=== PATIENT | female | born 1965 | race Caucasian/White ===

== ENCOUNTER 2019-04-01 09:49 | Inpatient (IN) ==
[2019-04-01] MEDS ORDERED: NS 1,000 ML IV PRN (10:48)
[2019-04-01 11:15] LABS: URINE SOURCE CLEAN CATCH
[2019-04-01 11:19] LABS: BASO# 0.02 X1000 (0.0-0.2); BASO% 0.5 % (0.0-0.8); EOS# 0.25 X1000 (0.0-0.7); EOS% 5.8 % (0.0-10.0); HEMATOCRIT 36.1 % (37.0-47.0); HEMOGLOBIN 12.1 g/dL (12.0-16.0); LYMPH# 1.16 X1000 (1.2-3.4); MCH 28.7 PG (27-31); MCHC 33.5 g/dL (33-37); MCV 85.7 FL (81-99); MONO# 0.27 X1000 (0.11-0.59); MONO% 6.3 % (1.7-9.3); MPV 12.4 FL (7.4-10.4); NEUT% 60.4 % (42.2-75.2); PLT 161 X1000 (130-400); RBC 4.21 XMIL (4.2-5.4); RDW 13.6 % (11.5-14.5)
--- NOTE | 2019-04-01 11:27 | Diag Imaging Result Doc PS360 ---
EXAM: CT HEAD W/O CONTRAST 04/01/2019 HISTORY: stroke like symptoms TECHNIQUE: This exam was performed using automated exposure control, adjustment of mA or kV according to patient size, and/or use of iterative reconstruction technique. COMMENT: There is no evidence of mass effect, bleed, or abnormal extra-axial fluid collection. The calvarium is intact. The visualized paranasal sinuses are clear. IMPRESSION: No evidence of acute intracranial disease. Electronically signed by Corona Garcia 04/01/2019 11:25 AM
--- NOTE | 2019-04-01 11:37 | Diag Imaging Result Doc PS360 ---
CHEST-PORTABLE - 04/01/2019 INDICATION: stroke like symptoms COMPARISON: None FINDINGS: The lungs are normally expanded and clear. Heart size and mediastinal contours are normal. No pneumothorax or pleural effusion. IMPRESSION: Negative exam. Electronically signed by Terry Davies 04/01/2019 11:34 AM
[2019-04-01 11:38] LABS: INR 0.93; PROTIME 12.5 Seconds (11.0-16.0)
[2019-04-01 11:43] LABS: PTT 24.9 Seconds (22.3-41.8)
[2019-04-01 11:47] LABS: BILIRUBIN URINE NEGATIVE (NEGATIVE); BLOOD URINE NEGATIVE (NEGATIVE); COLOR YELLOW; GLUCOSE URINE >1000 mg/dL (NEGATIVE); KETONE URINE NEGATIVE (NEGATIVE); LEUKOCYTES URINE SMALL (NEGATIVE); NITRITE URINE NEGATIVE (NEGATIVE); PROTEIN URINE NEGATIVE (NEGATIVE); TURBIDITY URINE CLEAR (CLEAR); UROBILINOGEN URINE NORMAL (NORMAL)
[2019-04-01 11:49] LABS: AGAP 14; ALB/GLOB RATIO 1.8; ALBUMIN 4.3 g/dL (3.5-5.0); ALKALINE PHOSPHATASE 93 U/L (32-104); BUN 13 mg/dL (8-22); CALCIUM 9.4 mg/dL (8.8-10.2); CHLORIDE 97 mmol/L (98-107); COSMO 294; CREATININE 0.9 mg/dL (0.5-0.9); ESTIMATED GFR > 60; GLUCOSE 356 mg/dL (70-104); GOT 19 U/L (10-30); GPT 17 U/L (10-36); POTASSIUM 3.6 mmol/L (3.5-5.1); SODIUM 140 mmol/L (136-145); TCO2 29 mmol/L (25-35); TOTAL BILIRUBIN 0.73 mg/dL (0.20-1.00); TOTAL PROTEIN 6.7 g/dL (6.3-8.3)
[2019-04-01 11:56] LABS: UR EPITHELIAL CELLS <10 /HPF (<10); URINE BACTERIA NEGATIVE /HPF; URINE RBC <10 /HPF (<10); URINE WBC <10 /HPF (<10); URINE YEAST PRESENT
[2019-04-01 12:20] LABS: UR AMPHETAMINES QUAL NONE DETECTED (NONE DETECT); UR BARBITUATES QUAL NONE DETECTED (NONE DETECT); UR BENZODIAZEPIN QUAL NONE DETECTED (NONE DETECT); UR CANNABINOIDS QUAL NONE DETECTED (NONE DETECT); UR COCAINE QUAL NONE DETECTED (NONE DETECT); UR METHADONE QUAL NONE DETECTED (NONE DETECT); UR OPIATES QUAL NONE DETECTED (NONE DETECT); UR OXYCODONE QUAL NONE DETECTED (NONE DETECT); UR PCP QUAL NONE DETECTED (NONE DETECT)
[2019-04-01] MEDS ORDERED: ASPIRIN PO ONE ×2 (13:17→17:10)
--- NOTE | 2019-04-01 13:34 | PROVIDER DOCUMENTATION ---
This chart was entered by Eugene Dinh Scribe, acting as scribe for Akbar Camara MD. HPI-Neurological Disorder - General Chief Complaint: Stroke-Like Symptoms Stated Complaint: DR FREDERICK REFERRED Time Seen by Provider: 04/01/19 10:06 Source: patient Allergies/Adverse Reactions: Patient Allergies Allergy/AdvReac Type Severity Reaction Status Date / Time latex Allergy Unknown Verified 04/01/19 10:09 Penicillins Allergy Unknown Verified 04/01/19 10:09 povidone-iodine Allergy Unknown Verified 04/01/19 10:09 [From Betadine] soap [From Betadine] Allergy Unknown Verified 04/01/19 10:09 Sulfa (Sulfonamide Allergy Unknown Verified 04/01/19 10:09 Antibiotics) Home Medications: Home Medication List Medication Instructions Recorded Confirmed Last Taken Type Atorvastatin Calcium [Lipitor] 40 mg PO DAILY 09/16/16 04/01/19 09/16/16 History Bisoprolol Fumarate [Zebeta] 10 mg PO DAILY 09/16/16 04/01/19 09/16/16 History Gabapentin 300 mg PO TID 09/16/16 04/01/19 09/16/16 History Glyburide/Metformin [Glucovance 1 tab PO BID 09/16/16 04/01/19 09/16/16 History 5/500 mg Tablet] Hydrochlorothiazide 25 mg PO DAILY 09/16/16 04/01/19 09/16/16 History LISINOpril [Prinivil] 10 mg PO DAILY 09/16/16 04/01/19 09/16/16 History Levothyroxine [Synthroid] 100 mcg PO DAILY 09/16/16 04/01/19 09/16/16 History Omeprazole 40 mg PO DAILY 04/01/19 04/01/19 Unknown History - History of Present Illness-Neuro Nature of Presenting Problem: 53 yof presents to the ed from being referred by Dr. Frederick. pt has RT visual disturbances since Jan, and has seen several physicians. pt was referred to Optho in [place] who ordered a MRI (possible CVA) and reported Accute or sub- acute infract. Severity: reports: mild Onset/Duration: reports: other (since Jan.) Timing: reports: still present Context: reports: other (Rt visual defect) Character of Altered Mental Status: reports: N/A Any recent trauma/injury?: reports: none New weakness or altered sensation location:: reports: none Cognitive Baseline: alert, oriented x3 Gait Baseline: walks without assistance Associated Symptoms: reports: vision changes. denies: short of breath, confusion, fever/chills, loss of consciousness, nausea, numbness in legs/feet, slurred speech, vomiting Similar Symptoms Previously?: No Recently seen or treated by another doctor?: Yes Review of Systems - Adult - REVIEW OF SYSTEMS - ADULT Constitutional: denies: chills, fever Eyes: reports: see HPI. denies: discharge, redness Ears, Nose, Mouth & Throat: reports: no symptoms reported Cardiovascular: reports: no symptoms reported Respiratory: reports: no symptoms reported Gastrointestinal: denies: constipation, diarrhea, nausea, vomiting Genitourinary: reports: no symptoms reported Musculoskeletal: denies: back pain, neck pain Integumentary: reports: no symptoms reported Neurological: reports: no symptoms reported Psychiatric: reports: no symptoms reported Endocrine: reports: no symptoms reported Hematologic/Lymphatic: reports: no symptoms reported Allergic/Immunologic: reports: no symptoms reported All Other Systems: Reviewed and Negative Past History - Adult - PAST MEDICAL HISTORY-ADULT Review of Records: reports: Old Records Reviewed, Nursing Assessment Review, Medications Reviewed, Social history reviewed & non-contributory. Major Childhood Illnesses: reports: denies history Cardiovascular: reports: HTN, hyperlipidemia Respiratory: reports: sleep apnea Gastrointestinal: reports: denies history Obstetrical/Gynecological: reports: denies history Genitourinary: reports: denies history Musculoskeletal: reports: denies history Neurological: reports: denies history Psychiatric: reports: denies history Endocrine/Immune: reports: Diabetes Other Conditions: reports: denies history - PRIOR SURGERIES/PROCEDURES Surgical/Procedure History: reports: cholecystectomy, other (knee & bone graft in wrist) - IMMUNIZATION STATUS Childhood Immunizations: See Nurse Assessment Flu Vaccine: See Nurse Assessment - FAMILY HISTORY Family History: reviewed, not pertinent - SOCIAL HISTORY Smoking: denies Substance Use: denies Physical Exam- Neurological - Physical Exam-Neuro Initial Vital Signs Reviewed: Yes General Appearance: appears well, 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, 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: normal hearing, normal speech, PERRL Motor/Sensory: no motor deficit, no sensory deficit, no pronator drift Neurologic: no motor/sensory deficits Psych/Mental Status: normal mood/affect, normal thought content, normal thought process, oriented x 3 - Glascow Coma Scale Best Eye Response: (4) open spontaneously Best Verbal Response: (5) oriented Best Motor Response: (6) obeys commands Total Glascow Score: 15 Progress - PLAN OF CARE/RESULTS Progress/Plan/Lab Results: Vital Signs - 8 hr 04/01/19 09:57 04/01/19 10:06 Temperature 98.3 F Pulse Rate 76 74 Respiratory Rate 16 15 Blood Pressure 117/64 159/81 O2 Sat by Pulse Oximetry 98 100 Laboratory Results - last 24 hr 04/01/19 04/01/19 04/01/19 11:00 11:00 11:00 WBC 4.30 L RBC 4.21 Hgb 12.1 Hct 36.1 L MCV 85.7 MCH 28.7 MCHC 33.5 RDW Std Deviation 13.6 Plt Count 161 MPV 12.4 H Immature Gran % (Auto) 0.0 Neut % (Auto) 60.4 Lymph % (Auto) 27.0 [place] % (Auto) 6.3 Eos % (Auto) 5.8 Baso % (Auto) 0.5 Immature Gran # (Auto) 0.00 Neut # (Auto) 2.60 Lymph # (Auto) 1.16 L [place] # (Auto) 0.27 Eos # (Auto) 0.25 Baso # (Auto) 0.02 PT 12.5 INR 0.93 PTT (Actin FS) 24.9 Sodium 140 Potassium 3.6 Chloride 97 L Carbon Dioxide 29 Anion Gap 14 BUN 13 Creatinine 0.9 Estimated GFR/1.73 m2 > 60 BUN/Creatinine Ratio 14 Glucose 356 H Calculated Osmolality 294 Calcium 9.4 Total Bilirubin 0.73 AST 19 ALT 17 Alkaline Phosphatase 93 Troponin T Total Protein 6.7 Albumin 4.3 Globulin 2.4 Albumin/Globulin Ratio 1.8 Urine Source Urine Color Urine Turbidity Urine pH Ur Specific [place] Urine Protein Ur Glucose (Stick) Ur Ketones (Stick) Urine Blood Urine Nitrite Urine Bilirubin Urobilinogen Dipstick Urine Leukocytes Urine WBC (Auto) Urine RBC (Auto) U Epithel Cells (Auto) Urine Bacteria (Auto) Urine Crystals Small Round Cells Urine Casts Urine Yeast-like Cells Urine Opiates Screen Ur Oxycodone Screen Ur Methadone, Qual Ur Barbiturates Screen Ur Phencyclidine Scrn Ur Amphetamines Screen U Benzodiazepines Scrn Urine Cocaine Screen U Cannabinoids Screen 04/01/19 04/01/19 04/01/19 11:00 11:00 11:00 WBC RBC Hgb Hct MCV MCH MCHC RDW Std Deviation Plt Count MPV Immature Gran % (Auto) Neut % (Auto) Lymph % (Auto) [place] % (Auto) Eos % (Auto) Baso % (Auto) Immature Gran # (Auto) Neut # (Auto) Lymph # (Auto) [place] # (Auto) Eos # (Auto) Baso # (Auto) PT INR PTT (Actin FS) Sodium Potassium Chloride Carbon Dioxide Anion Gap BUN Creatinine Estimated GFR/1.73 m2 BUN/Creatinine Ratio Glucose Calculated Osmolality Calcium Total Bilirubin AST ALT Alkaline Phosphatase Troponin T < 0.010 Total Protein Albumin Globulin Albumin/Globulin Ratio Urine Source CLEAN CATCH Urine Color YELLOW Urine Turbidity CLEAR Urine pH 6.0 Ur Specific [place] 1.020 Urine Protein NEGATIVE Ur Glucose (Stick) >1000 A Ur Ketones (Stick) NEGATIVE Urine Blood NEGATIVE Urine Nitrite NEGATIVE Urine Bilirubin NEGATIVE Urobilinogen Dipstick NORMAL Urine Leukocytes SMALL A Urine WBC (Auto) <10 Urine RBC (Auto) <10 U Epithel Cells (Auto) <10 Urine Bacteria (Auto) NEGATIVE Urine Crystals Not Reportable Small Round Cells Not Reportable Urine Casts Not Reportable Urine Yeast-like Cells PRESENT Urine Opiates Screen NONE DETECTED Ur Oxycodone Screen NONE DETECTED Ur Methadone, Qual NONE DETECTED Ur Barbiturates Screen NONE DETECTED Ur Phencyclidine Scrn NONE DETECTED Ur Amphetamines Screen NONE DETECTED U Benzodiazepines Scrn NONE DETECTED Urine Cocaine Screen NONE DETECTED U Cannabinoids Screen NONE DETECTED Orders Category Date Time Status Cardiac Monitoring DIRECTED Care 04/01/19 10:48 Active Finger Stick Blood Sugar (ED) DIRECTED Care 04/01/19 10:48 Active Misc. NRSG Communication Order DIRECTED Care 04/01/19 10:48 Active Saline Loc NOW Care 04/01/19 10:48 Active CHEST-PORTABLE [RAD] Stat Exams 04/01/19 10:[address] HEAD W/O CONTRAST [CT] Stat Exams 04/01/19 10:48 Completed CBC WITH ELECTRONIC DIFF [HEME] Stat Lab 04/01/19 11:00 Completed COMPREHENSIVE METABOLIC PANEL [CHEM] Stat Lab 04/01/19 11:00 Completed PROTIME WITH INR [COAG] Stat Lab 04/01/19 11:00 Completed PTT [COAG] Stat Lab 04/01/19 11:00 Completed TROPONIN T Stat Lab 04/01/19 11:00 Completed URINALYSIS W/POSS RFLX CULT [URINALYSIS] Stat Lab 04/01/19 11:00 Completed URINE CULTURE [RM] Routine Lab 04/01/19 11:03 Received URINE DRUG SCREEN Stat Lab 04/01/19 11:00 Completed URINE MANUAL MICROSCOPIC [URINALYSIS] Stat Lab 04/01/19 11:00 Completed 0.9% Sodium Chloride Inj [Ns] 1,000 ml Med 04/01/19 10:48 Active IV 100 mls/hr Aspirin Med 04/01/19 13:17 Discontinued 81 mg PO NOW ONE EKG [EKG] Stat Ther 04/01/19 10:48 Ordered Transfer/Admit Order [TRANSFER] Routine Transfer 04/01/19 13:07 Ordered Result Diagrams: 04/01/19 11:00 04/01/19 11:00 - XRAY 1 XRAY Study: Chest Impression: See EMR Report ( CHEST-PORTABLE - 04/01/2019 INDICATION: stroke like symptoms COMPARISON: None FINDINGS: The lungs are normally expanded and clear. Heart size and mediastinal contours are normal. No pneumothorax or pleural effusion. IMPRESSION: Negative exam. Electronically signed by Terry Davies 04/01/2019 11:34 AM 04/01/19 1134 Interpreting Physician: Terry Davies MD Dictated Date/Time: 04/01/19 1134 cc: Akbar Camara MD; Wilfredo Boyce MD) - CT/MRI 1 CT Study: Head Impression: See EMR Report (EXAM: CT HEAD W/O CONTRAST 04/01/2019 HISTORY: stroke like symptoms TECHNIQUE: This exam was performed using automated exposure control, adjustment of mA or kV according to patient size, and/or use of iterative reconstruction technique. COMMENT: There is no evidence of mass effect, bleed, or abnormal extra-axial fluid collection. The calvarium is intact. The visualized paranasal sinuses are clear. IMPRESSION: No evidence of acute intracranial disease. Electronically signed by Corona Garcia 04/01/2019 11:25 AM 04/01/19 1125 Interpreting Physician: Coroan Garcia MD Dictated Date/Time: 04/01/19 1124 cc: Akbar Camara MD; Wilfredo Boyce MD) - CONSULTS/PCP/HOSPITALIST Notification #3 Consult: Hospitalist Time Discussed: 12:30 Consult Disposition: Will see in ED, Admit Departure - Departure Date of Disposition Decision: 04/01/19 Time of Disposition Decision: 11:00 DIAGNOSIS: CVA (cerebral vascular accident) Qualifiers: CVA mechanism: unspecified Qualified Code(s): I63.9 - Cerebral infarction, unspecified Disposition: ADMITTED INPATIENT 09 Certified Medical Emergency: Emergent Condition: Good Referrals and Follow-Ups: Wilfredo Boyce MD [Primary Care Provider] - - Critical Care Note This patient required my direct & personal management of CC.: No Attestation - Physician/ ALINA Attestation Patient care was provided by Advanced Practice Provider:: No The physician spent face to face time with patient:: Yes Advanced Practice Provider documentation review:: Supervising physician onsite and consulted in the evaluation and care of this patient. The physician did have a face to face encounter with the patient. - NIH Stroke Scale NIH Type: Initial Evaluation Level of Consciousness: 0-Alert LOC Questions (ask month and age): 0-Answers Both Correctly LOC Commands (ask to open & close eyes;make a fist, let go): 0-Obeys Both Correctly Best Gaze (horizontal eye movement): 0-Normal Visual (use finger movement, counting or visual threat): 3-Bilateral Hemianopia Facial Palsy (show teeth or raise eyebrows & close eyes tght: 0-Symmetrical Movement Motor Function-left arm: 0-Normal Motor Function-right arm: 0-Normal Motor Function-left le-Normal Motor Function-right le-Normal Limb Ataxia([id number], or heel to schultz): 0-No Ataxia Sensory(pin prick to face,arms,trunk,legs-compare side/side): 0-No Ataxia Best Language(name item/read sentence.Ex-[place]): 0-No Aphasia Dysarthria(Pt read words or say words Ex.Mama,Tip-Top,Thanks: 0-Normal Articulation Extinction and Inattention: 0-Normal Stroke tPA Guidelines - Inclusion Criteria for IV tPA 18 years old or older: Yes Ischemic stroke with measurable deficit: Yes Onset <3 hours ago *OR* 3-4.5 hours ago: No This chart was documented by the indicated scribe, (Eugene Dinh, Scribe) and accurately reflects the services I performed and decisions made by me, Akbar Camara MD, as attested by the provider's signature.
[2019-04-01] MEDS ORDERED: TYLENOL PO PRN (15:17)
[2019-04-01] MEDS ORDERED: ZOFRAN IV PRN (15:17)
[2019-04-01 15:57] LABS: HEMOGLOBIN A1C 9.9 % (4.8-6.0)
[2019-04-01 16:03] LABS: FREE T4 1.61 ng/dL (0.93-1.70); TSH 2.25 uIUmL (0.27-4.20)
--- NOTE | 2019-04-01 16:42 | HISTORY AND PHYSICAL ---
PRIMARY CARE PHYSICIAN: Dr. Wilfredo Boyce. CHIEF COMPLAINT: She had an outpatient MRI yesterday and was called today stating that she had an acute or subacute left occipital lobe infarct and was requested to come to the ER for further evaluation. HISTORY OF PRESENTING ILLNESS: This is a 53-year-old female who presents to [facility] stating that she has had some visual disturbances that started in January, so about 6 weeks. She said she saw a local superintendent terminal who referred her to an superintendent terminal specialist in [place] who after examining her, felt that she may have had a stroke based off of how her eye exam looked. So yesterday, she had an outpatient MRI done at the [facility] here in [place] and the impression showed an acute or subacute left occipital lobe infarct with a more wedge-shaped area present extending to the midline and posterior margin of the left occipital lobe and so she was called by the superintendent terminal who received the report this morning to come to the emergency room for evaluation. So, she will now be admitted for further evaluation and treatment. PAST MEDICAL HISTORY: Diabetes type 2, uncontrolled. Hyperlipidemia, hypertension, sleep apnea, hypothyroidism, and arthritis. PAST SURGICAL HISTORY: Cholecystectomy, a knee surgery and a bone graft in her wrist. FAMILY HISTORY: Reviewed and noncontributory. SOCIAL HISTORY: She currently lives with family. Denies any tobacco, alcohol or illicit drug use. ALLERGIES: Latex, penicillin, Povidine, iodine, soap from the Betadine and sulfa. HOME MEDICATIONS: She takes Lipitor 40 mg p.o. daily, Zebeta 10 mg p.o. daily, gabapentin 300 mg p.o. t.i.d., Glucovance 5/500 one p.o. b.i.d., hydrochlorothiazide 25 mg p.o. daily, levothyroxine 100 mcg p.o. daily, lisinopril 10 mg p.o. daily, and omeprazole 40 mg p.o. daily. LABORATORY DATA: Showed a white blood cell count of 4.30, hemoglobin 12.1, hematocrit 36.1, platelets 161,000. PT and INR of 12.5 and 0.93. Sodium 140, potassium 3.6, chloride 97, CO2 29, BUN 13, creatinine 0.9, glucose 356. Troponin was negative. Urinalysis was negative. Urine drug screen showed none detected. Chest x-ray showed a negative exam. Head CT showed no evidence of an acute intracranial disease. She did have the MRI done outpatient at the [facility] yesterday. I do have a copy of that report in hand that shows an impression of acute or subacute left occipital lobe infarct with a more wedge-shaped area present extending to the midline and posterior margin of the left occipital lobe and this is most likely responsible for the patient's visual field deficits. REVIEW OF SYSTEMS: She denied any fever, chills, blurred vision. She did have some visual difficulties over the past 6 weeks that has progressively worsened, stating that she was having trouble reading and was reading on about a "3rd grade level" according to the patient because of her difficulty seeing. She denied any chest pain, coughing, shortness of breath. She denied any abdominal pain, constipation, diarrhea, burning or hurting with urination. PHYSICAL EXAMINATION: On arrival, she had a temperature of 98.3 degrees a pulse of 76, respirations 16, blood pressure 117/64, and saturating 98% on room air. GENERAL: This is a 53-year-old female who is lying in the bed. Answers questions appropriately. HEENT: Normocephalic, atraumatic. Normal ENT inspection. She has had some right visual peripheral an frontal defect, difficulty seeing out of her right eye, but extraocular movements are intact. NECK: Normal inspection. Normal range of motion. LUNGS: Clear to auscultation bilaterally with equal lung expansion and chest wall movement. HEART: With regular rate and rhythm. No murmurs, rubs, or gallops. ABDOMEN: Soft, nontender, nondistended. Bowel sounds are present x4 quadrants. MUSCULOSKELETAL: She had 5/5 strength x4 extremities. NEUROLOGICAL: The cranial nerves 2-12 are grossly intact. ASSESSMENT: 1. An acute/subacute left occipital cerebrovascular accident with right visual impairment. 2. Diabetes type 2 with hyperglycemia uncontrolled. 3. Hyperlipidemia. 4. Hypothyroidism. PLAN: She is being admitted to the medical unit and placed on telemetry. We will place her on a diabetic diet, do patterned blood sugars with sliding scale insulin. We are going to check a hemoglobin A1c. We will do a carotid Doppler and an echocardiogram. We will check her TSH and free T4. Continue her home medications. Give her aspirin 81 mg p.o. daily. We will recheck a CBC, BMP, and lipid profile. We will consult Neurology and further orders after seen by attending. Dictated by JOSEPH Carey for Bharat Huff MD cc: JOSEPH Carey MD David Francis, MD
[2019-04-01] MEDS: NEURONTIN PO SCH (17:17)
[2019-04-01] MEDS: LOVENOX SUBQ SCH (17:17)
[2019-04-01] MEDS: HUMALOG SUBQ SCH ×2 (17:21→22:25)
[2019-04-01] MEDS ORDERED: ASPIRIN ONE (17:30)
[2019-04-01] MEDS: SYNTHROID PO SCH (18:20)
[2019-04-01] MEDS: NOVOLOG MIX 70/30 SUBQ SCH ×2 (18:21→22:25)
[2019-04-01] MEDS ORDERED: INSULIN PEN NEEDLES ONE (18:22)
--- NOTE | 2019-04-01 20:30 | CONSULTATION ---
DATE OF CONSULTATION: 04/01/2019 HISTORY OF PRESENT ILLNESS:: Ms. Prasad is 53 years old. It looks like she had recent left occipital infarction producing minimal right hemianopia. History from the patient is that she noticed almost 2 months ago that she had difficulty with vision. Initially, she did not notice this to be focal. Eventually, she noticed when reading that she could see the first several letters of words but did not see the last several letters of words. She noticed that she would misplace things when she tried to put something down in a drawer to her right. She noticed that she would sometimes see only the left half of a car in front of her. She noticed a little bit of unsteady gait, which she attributed to lightheadedness and blood sugar effects. She did not notice bumping into things on her right side consistently. She did not fall. There was no significant headache. She did not have slurred speech or language deficit. There was no trouble with chewing or swallowing. She did not notice focal or generalized weakness or focal numbness in the limbs. She has chronic numbness in the feet attributed to longstanding diabetic neuropathy and that has been unchanged in recent months. Her workup began with visit to the eye doctor, referral to manager film in [place], discovery of visual field defect and then a brain MRI done locally, reported to show restricted diffusion in a small area in the left occipital lobe. I have not seen the scan. Workup here includes noncontrast CT, reported unremarkable. Lab shows blood sugar in 300s. She reports chronic proteinuria, but urine was negative for protein this admission. She has been afebrile. Most recent systolic blood pressure was 150s, and she is tolerating that. Risk factors include hypertension, dyslipidemia, diabetes mellitus. She does not smoke cigarettes. There is a family history that father had a "massive heart attack" in his mid 40s. She has not had a previous stroke, seizure, serious head injury, or other neurologic event. She denies ethanol use and illicit drug use. PHYSICAL EXAMINATION: General: She is awake, alert, attentive, appropriate, cheerful, oriented. She appears cognitively intact. Neurologic: Speech is not dysarthric. Language function is intact on bedside testing. Head and neck are unremarkable. On my visual field testing by confrontational finger counting, she made a few mistakes in the right visual field, possibly a little bit more superior than inferior, but there was not a consistent field cut identified. Extraocular movements are full. Facial motility is symmetric. Gag is intact. Tongue is midline. Hearing is good. Shoulder shrug is equal. Strength is normal in the arms and legs. She did well on [id number] testing bilaterally. I did not test her gait. She reports minimal loss of sensation in a stocking pattern bilaterally, equal on the left and right. Proprioception is good at the great toe MTP joints bilaterally. Reflexes are trace at the left ankle, absent at the right ankle, 1+ at the knees, 1+ at the wrists symmetrically. IMPRESSION: History of vision disturbance, reported documentation of right visual field loss, reported MRI evidence of recent left occipital infarction. She has risk factors as outlined above. Her clinical course has been stable since she noticed this deficit at least 6 weeks ago. I encouraged her to be aggressive with management of her risk factors. I agree with plans for workup, including echocardiogram and carotid ultrasound. In light of her young age, if we do not find anything remarkable with echo and carotid study, I think we should consider a CT angiogram of the head. She was taking daily aspirin, and I would continue that and consider adding clopidogrel at least short term. I would continue her statin. At this point, several weeks after onset, I do not think we have to permit significant hypertension. I would be aggressive with management of blood sugar and lipids. She should have follow up visual field study in several months, sooner if vision changes. Thanks for asking Neurology to see Ms. Prasad. I will be glad to see her as an outpatient, if needed. cc: MD ALONDRA Rodriguez III
--- NOTE | 2019-04-01 20:31 | HISTORY AND PHYSICAL ---
ADDENDUM: The patient seen and examined by me [id number]. All the laboratory, vital signs and images were reviewed. The patient presented with right visual disturbances. Apparently, this has been going on for a little bit. She was referred to an Ophthalmology in [place] and they ordered an MRI that showed an acute or subacute infarct. She has a mild visual deficit that she is missing a spot in her visual field, but no motor deficits. No problem swallowing and basically no other problems. She has been having problems controlling her blood sugar and actually her hemoglobin A1c is 9.9. Hemoglobin upon admission was 356. Normally she said that the blood sugar is above 200 at home. She has been on glyburide and metformin 5/500 mg tablet twice a day, but I will add NovoLog 70/30 25 units in the morning and 12 unit in the afternoon before meals. Neurology Department already evaluated this patient. I do not think we are going to add any treatment. Probably, she will need Plavix to take along with aspirin. I agree with the rest of the nurse practitioner's assessment and plan. cc: Bharat Huff MD
[2019-04-01] MEDS ORDERED: GLUCOVANCE 5-500 MG TABLET PO SCH (21:00)
[2019-04-01] MEDS: LIPITOR PO SCH (22:25)
[2019-04-02] MEDS: HUMALOG SUBQ SCH ×4 (06:08→22:25)
[2019-04-02] MEDS ORDERED: PRILOSEC PO SCH (07:00)
[2019-04-02 07:31] LABS: BASO# 0.03 X1000 (0.0-0.2); BASO% 0.6 % (0.0-0.8); EOS# 0.28 X1000 (0.0-0.7); EOS% 5.4 % (0.0-10.0); HEMATOCRIT 35.7 % (37.0-47.0); HEMOGLOBIN 11.6 g/dL (12.0-16.0); LYMPH# 1.83 X1000 (1.2-3.4); LYMPH% 35.4 % (20.5-51.1); MCH 28.1 PG (27-31); MCHC 32.5 g/dL (33-37); MCV 86.4 FL (81-99); MONO# 0.34 X1000 (0.11-0.59); MONO% 6.6 % (1.7-9.3); MPV 12.4 FL (7.4-10.4); NEUT# 2.69 X1000 (1.4-6.5); PLT 194 X1000 (130-400); RBC 4.13 XMIL (4.2-5.4); RDW 13.6 % (11.5-14.5); WBC 5.17 X1000 (4.8-10.8)
[2019-04-02 07:45] LABS: AGAP 14; BUN 9 mg/dL (8-22); CALCIUM 9.2 mg/dL (8.8-10.2); CHLORIDE 99 mmol/L (98-107); COSMO 287; CREATININE 0.8 mg/dL (0.5-0.9); ESTIMATED GFR > 60; GLUCOSE 220 mg/dL (70-104); SODIUM 141 mmol/L (136-145); TCO2 28 mmol/L (25-35)
[2019-04-02] MEDS ORDERED: KLOR-CON PO ONE (08:39)
[2019-04-02] MEDS ORDERED: LIPITOR PO SCH (09:00)
[2019-04-02] MEDS ORDERED: SYNTHROID PO SCH (09:00)
[2019-04-02] MEDS: ASPIRIN PO SCH (09:46)
[2019-04-02] MEDS: ZEBETA PO SCH (09:46)
[2019-04-02] MEDS: HYDROCHLOROTHIAZIDE PO SCH (09:46)
[2019-04-02] MEDS: SYNTHROID PO SCH (09:46)
[2019-04-02] MEDS: PRINIVIL PO SCH (09:46)
[2019-04-02] MEDS: NEURONTIN PO SCH ×3 (09:46→17:32)
[2019-04-02] MEDS: NOVOLOG MIX 70/30 SUBQ SCH ×3 (09:47→22:24)
[2019-04-02] MEDS: PLAVIX PO SCH (11:04)
--- NOTE | 2019-04-02 13:13 | PROGRESS NOTE ---
DATE: 04/02/2019 SUBJECTIVE: Ms. Prasad reports stable course over the last 24 hours. She specifically denies new vision problems. She has not had headache. Systolic blood pressures have ranged 120s-140s. Blood sugars have ranged 200s to 400s. Echocardiogram and carotid ultrasound have been done with report pending. She believes there may have been a verbal report that there were no remarkable findings, but I do not have documentation of that. If we do not find significant left carotid stenosis, I would consider elective CT angiogram of the head. Her creatinine is good and she should tolerate that study. If CTA is unremarkable, as expected, I would continue aggressive management of blood sugar, treat blood pressure aggressively, treat lipids, continue dual antiplatelet management. Later, depending on her clinical course, outpatient referral to a Stroke Clinic for consideration of conventional arteriogram could be considered. She is relatively young, but has usual risk factors and stroke clinic referral will probably not be necessary unless she has further events or has strong personal desire to take that step. I have ordered some coagulopathy screening lab for stroke in young adult. I will follow up on these results if she is discharged before reports are available. Thanks for asking Neurology to see Ms. Prasad. I will be glad to see her as an outpatient if needed. cc: MD ALONDRA Rodriguez III
--- NOTE | 2019-04-02 13:36 | ECHO REPORT ---
ORDER DATE: 04/01/2019 INTERPRETING PHYSICIAN: Dr. Freddy Hartmann. ECHOCARDIOGRAPHIC MEASUREMENTS: 1. Interventricular septum: 1.6 cm. 2. Left ventricular posterior wall: 1.3 cm. 3. Diastolic diameter: 4.4 cm. 4. Left atrium: 4.1 cm. 5. Aorta: 2.5 cm. SUMMARY OF THE 2-DIMENSIONAL IMAGIN. Aortic valve leaflets are sclerosed, trileaflet. 2. Pulmonic valve was normal. 3. Tricuspid valve was normal. 4. Mitral valve was normal. 5. There is mild left atrial enlargement. 6. Mild tricuspid regurgitation. Peak velocity across the tricuspid valve was 2.7 m/sec. 7. Pulmonary artery systolic pressure of 31 mmHg. 8. Mild mitral regurgitation. 9. Peak velocity across the aortic valve was less than 2 m/sec. There is no aortic stenosis or regurgitation. 10. Normal left ventricular cavity size. Concentric left ventricular hypertrophy. Estimated ejection fraction 65%. There is grade 1 diastolic dysfunction. cc: MD Sada Winters CRNP
[2019-04-02] MEDS: 1/2 NS 1,000 ML IV SCH (15:00)
--- NOTE | 2019-04-02 15:01 | PROGRESS NOTE ---
DATE: 04/02/2019 SUBJECTIVE: No acute events overnight. This patient has been requested a medication to be able to sleep, Dr. Gonsales recommended to add Plavix to her medications, which I did, and also do a CT angiogram of the head if this patient's carotid ultrasound and echocardiogram did not show anything remarkable, so CT angiogram has been ordered today, also he will check for panel for coagulability, and if this patient is discharged, he will follow up on that. I called for the recall of the carotid ultrasound and it looks like she has a normal volume of 0 to 39 percent, echocardiogram came back and showed a normal ejection fraction, a slightly increased pulmonary pressure at 31 mmHg and concentric left ventricular hypertrophy, of note this patient's father at the age of 45 for a massive heart attack. I will wait for the CT angiogram. I will readjust her insulin today to see how she does, I have calculated her dose around 0.5 mg/kg. Tomorrow depending on the results, we will readjust it again and probably she can be discharged after a neurology evaluation. OBJECTIVE: Vital Signs: Temperature 97.9 degrees, pulse 73, respiratory rate 19, blood pressure 142/72, oxygen saturation 98 on room air. HEENT: Head normocephalic, no trauma. PERRLA, she has some blind spots on my confrontational finger counting on the right side, the rest of my physical exam was basically appropriate. Neck: Supple, no JVD. Central trachea. Chest: Clear to auscultation. No wheezing. No rales. Abdomen: Soft, nontender, nondistended. No hepatosplenomegaly. Extremities: No edema, no clubbing, no cyanosis. Neurological: The patient is alert. She is oriented x3. No focal deficits but right eye disturbances. LABORATORY: WBC 5.1, hemoglobin 11.6, hematocrit 35.7, platelets 194,000, sodium 141, potassium 3, chloride 99, bicarbonate 28, BUN 9, creatinine 0.8, glucose 220, calcium 9.2. ASSESSMENT AND PLAN: 1. Reported right visual: Part of the visual field loss, reported MRI showed a recent left occipital infarction, MRI done showed restricted diffusion in a small area of the left occipital lobe, Neurology Department evaluated this patient. They added Plavix to her aspirin and probably this is going to be for a short term, likely also she will follow up with Dr. Gonsales as an outpatient. Coagulopathy study has been performed and is pending at this moment. We did a carotid and also an echocardiogram that did not show any big abnormalities, so we will ask for a CT angiogram of the head as suggested by Dr. Gonsales. 2. Uncontrolled type 2 diabetes with a hemoglobin A1c of 9.9, I have placed this patient on some insulin 70/30, but I will increase the dose of the insulin today to 30 in the morning and 15 during the night, as per the patient, her blood sugar at home is around 200 and sometimes is lower than that, she is trying to follow a diet and she is on glyburide, metformin 5/500 mg tablet twice a day. 3. Hypothyroidism. Continue with Synthroid. 4. Peripheral neuropathy. Continue with gabapentin. 5. Dyslipidemia. She has been placed on Lipitor 40 mg daily. 6. Hypertension. Continue with home medications. This seems to be stable. 7. Hopefully this patient can be discharged tomorrow after a neurology evaluation, I have ordered a CT angiogram which has been recommended by Cardiology, carotid ultrasound showed 0 to 39 percent stenosis which is stable, echocardiogram is reported, she has mild concentric hypertrophy of the left ventricle but normal ejection fraction, mild pulmonary hypertension. I have readjusted the dose of 70/30 and we will monitor. cc: Bharat Huff MD
--- NOTE | 2019-04-02 16:40 | Diag Imaging Result Doc PS360 ---
CT ANGIOGRAM HEAD - 04/02/2019 INDICATION: Stroke TECHNIQUE: Axial CT images were obtained after administering intravenous contrast. Three-dimensional angiographic images were generated. COMPARISON: Head CT 04/01/2019 FINDINGS: The intracranial arteries are all patent. There is no stenosis or aneurysm. Anatomy is conventional. There are some minimal calcified vascular disease of the carotid siphons. The vertebral arteries are patent and symmetric. Basilar artery is normal. IMPRESSION: No acute abnormality. This exam was performed using automated exposure control, adjustment of mA or kV according to patient size, and/or use of iterative reconstruction technique Electronically signed by Terry Davies 04/02/2019 4:38 PM
[2019-04-02] MEDS: LOVENOX SUBQ SCH (17:32)
--- NOTE | 2019-04-02 19:59 | Carotid Study ---
DATE: 04/01/2019 COSTUME DIRECTOR: [place] REQUESTING PROVIDER: JOSEPH Carey INDICATIONS: CVA, right eye vision disturbance. FINDINGS: Bilateral carotid arteries were visualized. Velocities normal. No significant atherosclerotic changes and antegrade vertebrals. SUMMARY: Overall normal appearing carotid duplex. cc: MD Sada Back CRNP
[2019-04-02] MEDS: LIPITOR PO SCH (22:24)
[2019-04-03] MEDS: AMBIEN PO SCH ×2 (02:51→21:53)
[2019-04-03] MEDS: HUMALOG SUBQ SCH ×4 (06:38→21:54)
[2019-04-03 07:35] LABS: BASO# 0.03 X1000 (0.0-0.2); BASO% 0.5 % (0.0-0.8); EOS# 0.25 X1000 (0.0-0.7); EOS% 4.2 % (0.0-10.0); HEMATOCRIT 36.7 % (37.0-47.0); HEMOGLOBIN 12.2 g/dL (12.0-16.0); LYMPH# 2.08 X1000 (1.2-3.4); LYMPH% 34.6 % (20.5-51.1); MCH 29.1 PG (27-31); MCHC 33.2 g/dL (33-37); MCV 87.6 FL (81-99); MONO# 0.34 X1000 (0.11-0.59); MONO% 5.6 % (1.7-9.3); MPV 12.4 FL (7.4-10.4); NEUT# 3.32 X1000 (1.4-6.5); NEUT% 55.1 % (42.2-75.2); PLT 192 X1000 (130-400); RBC 4.19 XMIL (4.2-5.4); RDW 13.7 % (11.5-14.5); WBC 6.02 X1000 (4.8-10.8)
[2019-04-03 07:57] LABS: AGAP 15; BUN 9 mg/dL (8-22); CHLORIDE 97 mmol/L (98-107); COSMO 285; CREATININE 0.8 mg/dL (0.5-0.9); ESTIMATED GFR > 60; GLUCOSE 217 mg/dL (70-104); POTASSIUM 3.3 mmol/L (3.5-5.1); SODIUM 140 mmol/L (136-145); TCO2 28 mmol/L (25-35)
[2019-04-03] MEDS ORDERED: NOVOLOG MIX 70/30 SUBQ SCH (09:00)
[2019-04-03] MEDS: ASPIRIN PO SCH (09:16)
[2019-04-03] MEDS: PRINIVIL PO SCH (09:16)
[2019-04-03] MEDS: ZEBETA PO SCH (09:16)
[2019-04-03] MEDS: PLAVIX PO SCH (09:17)
[2019-04-03] MEDS: HYDROCHLOROTHIAZIDE PO SCH (09:17)
[2019-04-03] MEDS: SYNTHROID PO SCH (09:17)
[2019-04-03] MEDS: NEURONTIN PO SCH ×3 (09:17→21:57)
--- NOTE | 2019-04-03 13:26 | PROGRESS NOTE ---
DATE: 04/03/2019 SUBJECTIVE: Ms. Prasad has not noticed any new problems with vision. She does not have any new complaints. DATA: Blood sugars have been a little bit improved overnight, but again over 300 early this morning. Sedimentation rate was 27. Echocardiogram and carotid ultrasound were unremarkable. CT angiogram of the head was normal. Systolic blood pressures have been 110s to 130s today. I do not have any new suggestion. We discussed referral to tertiary stroke clinic, but I do not think that is necessary at this point. I encouraged her to be aggressive with management of her risk factors. I will be glad to see Ms. Prasad again at any time. Thanks for asking Neurology to see her here. cc: Jaziel Gonsales III, MD MTDJeffry
[2019-04-03] MEDS: LOVENOX SUBQ SCH (17:37)
[2019-04-03] MEDS: 1/2 NS 1,000 ML IV SCH (17:38)
--- NOTE | 2019-04-03 18:38 | PROGRESS NOTE ---
DATE: 04/03/2019 SUBJECTIVE: This morning Ms. Prasad referred to be doing well. Still remains with some mild visual deficit. OBJECTIVE: Vital signs: Blood pressure is 127/73, pulse of 73, respirations 18, temperature is 98.1 degrees. On general exam Ms. Prasad is a 53-year-old female. She is in bed in no distress. Mucosa is pink and moist. Anicteric. Acyanotic. Neck is supple. Chest: Good air entry bilaterally. No crepitations. No rhonchi. Cardiovascular: Regular rate and rhythm. Abdomen is soft, distended but nontender. Bowel sounds present. Extremities: No pedal edema. 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 There is no motor deficit. The patient still refers to have some visual deficit, but I was unable to elicit that on physical exam. LABORATORY DATA: Reviewed, is unremarkable. DIAGNOSTIC DATA: An MRI report from the Imaging Center shows acute or subacute left occipital lobe infarct with a more wedge-shaped area present extending to the midline and posterior margin of the left occipital lobe. It measures approximately 3 x 3 x 3 x 0.5 in size. It is most likely responsible for the patient's visual field defects. ASSESSMENT AND PLAN: 1. Acute/subacute left occipital lobe infarct causing mild visual field defect on admission. The patient's CTA has been unremarkable. A transthoracic echocardiogram was also unremarkable. We will get Cardiology to evaluate her for possible transesophageal echocardiogram, plus/minus a Holter monitor to rule out any embolic course. 2. Severe uncontrolled diabetes mellitus, with presenting A1c of 9.9. The patient is on insulin regimen. 3. Hypertension. Blood pressures are within normal range, and I think Ms. Prasad's stroke probably happened somewhere in January, so I think it is reasonable to continue with the blood pressure management as it is. 4. Hypothyroidism. We will continue with Synthroid. 5. Dyslipidemia. Ms. Prasad was on Lipitor 40 mg even before the stroke. I think the dose needs to be uptitrated or change it to Crestor high-intensity dose as well. Today we are going to get Cardiology to evaluate Ms. Prasad for possible transesophageal echocardiogram/Holter monitor. Once she is evaluated by them I think we can get her discharged. cc: Jesse Sommers MD
[2019-04-03] MEDS: NOVOLOG MIX 70/30 SUBQ SCH (21:54)
[2019-04-03] MEDS: CRESTOR PO SCH (21:57)
[2019-04-03] MEDS ORDERED: INSULIN PEN NEEDLES ONE (22:14)
[2019-04-04] MEDS: HUMALOG SUBQ SCH ×4 (06:35→20:37)
[2019-04-04] MEDS ORDERED: NOVOLOG MIX 70/30 SUBQ SCH (09:00)
[2019-04-04] MEDS: PLAVIX PO SCH (09:41)
[2019-04-04] MEDS: PRINIVIL PO SCH (09:41)
[2019-04-04] MEDS: ASPIRIN PO SCH (09:41)
[2019-04-04] MEDS: HYDROCHLOROTHIAZIDE PO SCH (09:41)
[2019-04-04] MEDS: NEURONTIN PO SCH ×3 (09:41→20:39)
[2019-04-04] MEDS: SYNTHROID PO SCH (09:41)
[2019-04-04] MEDS: ZEBETA PO SCH (09:41)
[2019-04-04] MEDS ORDERED: PERICOLACE PO SCH (14:00)
[2019-04-04] MEDS: LOVENOX SUBQ SCH (14:21)
--- NOTE | 2019-04-04 15:07 | PROGRESS NOTE ---
DATE: 04/04/2019 SUBJECTIVE: This morning, Ms. Prasad referred to be doing well. Denies any new complaints. Still has the peripheral visual defects. OBJECTIVE: Vital signs: Blood pressure is 134/71, pulse of 73, respirations 21, temperature is 98.4 degrees. General: Ms. Prasad is a 53-year-old elderly female. She was sitting in a chair, no distress. HEENT: Mucosa is pink and moist. Anicteric. Acyanotic. Neck: Supple. Chest: Good air entry bilaterally. No crepitations. No rhonchi. There was no JVD on neck and no carotid bruit. Cardiovascular: Regular rate and rhythm. No murmurs, no rubs, no gallops. Abdomen: Soft, distended, but nontender. Bowel sounds present. No hepatosplenomegaly. Extremities: No pedal edema. Distal pulses present. 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 There is no motor deficit. Still has some visual defects. LABORATORY DATA: None for today. Glucose was 230 early on this morning. CURRENT MEDICATIONS: Have all been reviewed. ASSESSMENT: 1. Acute/subacute left occipital lobe infarct causing a mild visual field defect on admission. The patient's CTA of the neck and brain was unremarkable. A transthoracic echocardiogram was also unremarkable. Cardiology has been consulted for possible BETHEL plus or minus Holter monitor. 2. Severe uncontrolled diabetes mellitus with presenting A1c of 9.9. Patient is currently on insulin regimen. 3. Hypertension, controlled. 4. Hypothyroidism. Patient is on Synthroid. 5. Dyslipidemia. We will continue with Crestor. PLAN: This morning, Ms. Coombss insulin has been increased to 35 in the morning and 20 in the evening. We will continue with the rest of her current medications. We are pending recommendations from Cardiology and hopefully get her discharged today or tomorrow depending on what Cardiology recommends. If Cardiology does not think that there is the need for any BETHEL, I think Ms. Prasad can be discharged today. cc: Jesse Sommers MD
[2019-04-04] MEDS: AMBIEN PO SCH (20:39)
[2019-04-04] MEDS: CRESTOR PO SCH (20:39)
[2019-04-04] MEDS: NOVOLOG MIX 70/30 SUBQ SCH (20:40)
[2019-04-05] MEDS: HUMALOG SUBQ SCH ×3 (06:19→16:08)
[2019-04-05 07:48] LABS: AGAP 14; BUN 14 mg/dL (8-22); CALCIUM 9.3 mg/dL (8.8-10.2); CHLORIDE 99 mmol/L (98-107); COSMO 289; CREATININE 0.9 mg/dL (0.5-0.9); ESTIMATED GFR > 60; GLUCOSE 235 mg/dL (70-104); PHOSPHORUS 4.1 mg/dL (2.7-4.5); POTASSIUM 3.6 mmol/L (3.5-5.1); SODIUM 141 mmol/L (136-145); TCO2 28 mmol/L (25-35)
[2019-04-05] MEDS ORDERED: NOVOLOG MIX 70/30 SUBQ SCH (09:00)
[2019-04-05] MEDS: HYDROCHLOROTHIAZIDE PO SCH (09:16)
[2019-04-05] MEDS: ASPIRIN PO SCH (09:16)
[2019-04-05] MEDS: SYNTHROID PO SCH (09:16)
[2019-04-05] MEDS: PLAVIX PO SCH (09:17)
[2019-04-05] MEDS: PRINIVIL PO SCH (09:17)
[2019-04-05] MEDS: ZEBETA PO SCH (09:17)
[2019-04-05] MEDS: NEURONTIN PO SCH ×3 (09:24→20:39)
--- NOTE | 2019-04-05 15:04 | CONSULTATION ---
DATE OF CONSULTATION: 04/05/2019 IMPRESSION: 1. Status post left occipital cerebrovascular accident probably back in January of this year. Cannot entirely exclude cardiac source of embolus given that carotid Doppler study has been negative and CT angiography demonstrates no significant intracranial cerebral vascular disease. 2. Diabetes mellitus type 2. 3. Obesity. 4. Hyperlipidemia. 5. Hypertension. 6. Obstructive sleep apnea. RECOMMENDATIONS: 1. Favor further evaluation for possible cardiac source of embolus in light of patient's age and lack of a clear vascular etiology. Recommend transesophageal echocardiography. This was discussed with the patient including the potential hazards and she wished to proceed. 2. Also recommend 30 day event recorder at discharge to screen for paroxysmal atrial fibrillation. HISTORY: This 53-year-old white female with past history of obesity, type 2 diabetes mellitus, hypertension, hyperlipidemia, obstructive sleep apnea and hypothyroidism was admitted for further workup of recent cerebrovascular accident. She recalls having some visual disturbance back in January of this year. She sought evaluation by an blood bank technologist who became concerned that she had a cerebrovascular accident. She had outpatient MRI of the brain performed on the day before admission which indicated a recent left occipital lobe infarct. She was subsequently admitted for further evaluation. She denies any significant palpitations, chest discomfort or shortness of breath. She is a nonsmoker. Since hospitalization she has had echocardiography which was benign, carotid Doppler study which was normal, and CT angiography demonstrating no significant intracranial cerebral vascular disease. Cardiology is consulted to consider merits of transesophageal echocardiography. PAST MEDICAL HISTORY: 1. Obesity. 2. Type 2 diabetes mellitus. 3. Hyperlipidemia. 4. Hypertension. 5. Obstructive sleep apnea. 6. Hypothyroidism. 7. Arthritis. PAST SURGICAL HISTORY: Includes cholecystectomy, unspecified knee surgery, and bone graft in her wrist. ALLERGIES: She is allergic or intolerant to latex, penicillin, Povidine, iodines and sulfa. MEDICATIONS PRIOR TO ADMISSION: As listed. SOCIAL HISTORY: She is and lives with family. She does not smoke or use alcohol. FAMILY HISTORY: Positive for early coronary disease. Specifically her father suffered a myocardial infarction in his 40s. Father was a smoker as well. Is also family history of diabetes. REVIEW OF SYSTEMS: Pulmonary: Negative. Gastrointestinal: Negative. Constitutional: Negative. Remainder review of systems negative/noncontributory with 14 total systems reviewed. PHYSICAL EXAMINATION: General: This is obese middle-aged white female in no distress on room air. Vital signs: Blood pressure 131/77, heart rate 74, oxygen saturation 100%. HEENT: Extraocular movements appear intact. Mucous membranes moist. Neck: Supple without jugular venous distention. There are no carotid bruits. Chest: Clear to auscultation bilaterally. Cardiac: Reveals a regular rate and rhythm without appreciable murmur or gallop. Abdomen: Soft. Bowel sounds normal. Extremities: Without edema. Neurologic: Reveals her to be alert and fully oriented. Speech is fluent. She moves all 4 extremities equally well. Skin: Warm, dry. Psychiatric: Reveals mood to be appropriate. DATA: Twelve lead EKG is pending at time of dictation. Telemetry is reviewed and demonstrates consistent sinus rhythm. Echocardiography demonstrates normal left ventricular ejection fraction. Carotid Doppler study is normal. CT angiography reports no significant intracranial cerebrovascular disease. LABORATORY DATA: Includes sodium 141, potassium 3.6, chloride 99, carbon dioxide 28, BUN 14, creatinine 0.9, glucose 235. Triglycerides 230, total cholesterol 160, LDL cholesterol 101, VLDL cholesterol 46, HDL cholesterol 39. cc: Jos Bowen MD
[2019-04-05] MEDS: LOVENOX SUBQ SCH (16:08)
--- NOTE | 2019-04-05 16:30 | PROGRESS NOTE ---
DATE: 04/05/2019 INTERVAL HISTORY: Patient has mild right visual field deficit stable. No other symptoms. No acute events overnight. REVIEW OF SYSTEMS: Twelve point review of systems negative except as per interval history. LABS: Sodium 141, potassium 3.6, BUN 14, creatinine 0.9, glucose 200 to 376. VITALS: T-max 98.6 degrees, pulse 74, respirations 22, blood pressure 131/77, O2 saturation 100% on room air. PHYSICAL EXAMINATION: General: No acute distress. Vitals as above. HEENT: Normocephalic, atraumatic. Moist mucous membranes. No cervical adenopathy. Cardiovascular: Regular rate and rhythm. No murmurs noted. Pulmonary: Clear to auscultation bilaterally. No wheezing, rales or rhonchi. Abdomen: Soft, nontender, nondistended. Bowel sounds positive. Extremities: Peripheral pulses intact. No clubbing or cyanosis. Neurologic: Pupils equal, round, reactive to light, faint right visual field deficit stable, cranial nerves remain otherwise intact. No other focal deficits identified. Psychiatric: Normal mood and affect. Awake, alert, oriented x3. Skin: No new rashes noted. ASSESSMENT AND PLAN: 1. Acute left occipital lobe stroke with mild right visual field deficit. Workup thus far unremarkable with CTA, carotid Dopplers and regular echocardiogram unremarkable. Cardiology on board and planning on BETHEL tomorrow followed by Holter monitoring to assess for patent ductus and/or evidence of paroxysmal atrial fibrillation. Likely discharge home tomorrow after BETHEL. Will continue aspirin and Plavix for now as recommended by Neurology unless evidence of atrial fibrillation is found. 2. Diabetes mellitus. A1c 9.9. Remains quite uncontrolled. Increased a.m. 70/30 and will monitor and adjust further as needed. 3. Hypertension good control on current lisinopril and bisoprolol. 4. Hyperlipidemia on Crestor currently. Was on atorvastatin 40 at home. Will probably just do atorvastatin 80 at discharge. 5. Hypothyroidism. Continue home Synthroid.
[2019-04-05] MEDS: CRESTOR PO SCH (20:39)
[2019-04-05] MEDS: NOVOLOG MIX 70/30 SUBQ SCH (20:51)
[2019-04-06] MEDS: HUMALOG SUBQ SCH ×4 (00:54→13:19)
[2019-04-06] MEDS: AMBIEN PO SCH (03:06)
[2019-04-06] MEDS: NEURONTIN PO SCH ×2 (09:10→13:10)
[2019-04-06] MEDS ORDERED: ANESTHESIA PB SET 88 IN 5742 ONE (10:17)
[2019-04-06] MEDS ORDERED: NS 500 ML ONE (10:17)
[2019-04-06] MEDS ORDERED: CLAVE TWINSITE 32 IN 11959 ONE (10:17)
[2019-04-06] MEDS ORDERED: DIPRIVAN 1% ONE (10:21)
[2019-04-06] MEDS ORDERED: VERSED ONE (10:21)
--- NOTE | 2019-04-06 10:52 | ECHO REPORT ---
ORDER DATE: 04/06/2019 DESCRIPTION OF PROCEDURE: Ms. Hannah Prasad was brought to the cardiac catheterization laboratory for a transesophageal echocardiogram to rule out intracardiac source of embolism. Informed consent was obtained. Oropharynx was anesthetized using Cetacaine spray. Transesophageal probe was easily passed into the esophagus. The patient was also given propofol. Please see detailed anesthesia records. There were no complications. FINDINGS: 1. Normal left ventricular cavity size. Estimated ejection fraction of 60% to 65%. 2. Left atrium was normal. 3. Left atrial appendage was normal. 4. Right atrium was normal. 5. Saline contrast study was negative for patent foramen ovale. 6. Tricuspid valve was normal. 7. Aortic valve leaflets are trileaflet. 8. Pulmonic valve was normal. 9. Ascending aorta was normal. 10. Descending aorta had layered plaque. 11. Doppler studies revealed mild mitral regurgitation. 12. Mild tricuspid regurgitation. 13. There is no aortic stenosis or regurgitation. 14. There is no pulmonary regurgitation. 15. There is no pericardial effusion. CONCLUSIONS: 1. No obvious intracardiac mass or thrombus seen. 2. Saline contrast study was negative for patent foramen ovale. cc: MD Jos Winters MD
[2019-04-06 12:36] VITALS: BP 132/81
[2019-04-06] MEDS: ZEBETA PO SCH (13:08)
[2019-04-06] MEDS: ASPIRIN PO SCH (13:08)
[2019-04-06] MEDS: HYDROCHLOROTHIAZIDE PO SCH (13:08)
[2019-04-06] MEDS: SYNTHROID PO SCH (13:09)
[2019-04-06] MEDS: PLAVIX PO SCH (13:09)
[2019-04-06] MEDS: PRINIVIL PO SCH (13:10)
[2019-04-06] MEDS ORDERED: NOVOLOG MIX 70/30 SUBQ ONE (13:23)
[2019-04-06] MEDS ORDERED: PNEUMOVAX 23 IM ONE (14:30)
[2019-04-06] MEDS ORDERED: NOVOLOG MIX 70/30 SUBQ SCH (21:00)
[2019-04-07] MEDS ORDERED: NOVOLOG MIX 70/30 SUBQ SCH (08:00)
--- NOTE | 2019-04-08 15:37 | DISCHARGE SUMMARY ---
ADMISSION DATE: 04/01/2019 DISCHARGE DATE: 04/06/2019 CONSULTS: 1. Cardiology, Dr. Gillespie. 2. Neurology, Dr. Gonsales. PERTINENT STUDIES: CT head unremarkable. Carotid Dopplers normal. BETHEL, transesophageal echocardiogram, reveals mildly elevated pulmonary pressure at 31, normal EF and grade 1 diastolic dysfunction. No patent foramen ovale. No intracardiac thrombus. CTA head, no acute abnormality. MRI from outside facility reportedly showing acute left occipital lobe stroke. A1c 9.9. DISCHARGE DIAGNOSES: 1. Acute stroke. 2. Visual field deficit. 3. Diabetes mellitus. 4. Hypertension. 5. Hyperlipidemia. 6. Hypothyroidism. HOSPITAL COURSE: The patient presented after being told by her information technology data analyst to come to the ER for evaluation. She went to the information technology data analyst because of some visual disturbances primarily on the right side. There was concern for visual field deficits, so she had an outpatient MRI done which reportedly showed an acute to subacute left occipital lobe stroke. The initial visual disturbances presented approximately 6 weeks prior to admission. The patient was put in for further evaluation. Evaluation for secondary causes of stroke here were unremarkable. CTA was normal as were carotid Dopplers. Transthoracic echo showed possibly mildly elevated pulmonary pressures and possible minimal grade 1 diastolic dysfunction but nothing that would be associated with a stroke. BETHEL showed essentially no abnormalities, was negative for patent foramen ovale, showed normal EF. No evidence of intracardiac thrombus. Did not show any clear diastolic failure on that study. Neurology saw the patient and recommend evaluation by Cardiology, who performed a BETHEL and arranged for the patient to have a Holter monitor after discharge. No cardiac arrhythmias were noted during hospitalization, but it was felt that Holter monitor to evaluate for paroxysmal or cult atrial fibrillation was warranted. Neurologist's recommendations she was placed on aspirin Plavix for a short period of time, to be determined by Neurology as an outpatient until those tests were obtained. She was discharged home in stable condition to follow up with her PCP, Cardiology and Neurology. The patient did have some issues with hyperglycemia and had an elevated A1c, so Actos was added to her home metformin and metformin was increased. She was otherwise essentially stable. She had some mild hyperkalemia which was repleted. DISCHARGE VITALS: Temperature 98.4 degrees, pulse 77, blood pressure 132/81, O2 saturation 100% on room air. DISCHARGE DIET: Diabetic low salt. DISCHARGE MEDICATIONS: Gabapentin 300 mg p.o. t.i.d., hydrochlorothiazide 25 mg p.o. daily, omeprazole 40 mg p.o. daily, lisinopril 10 mg p.o. daily, Synthroid 100 mcg p.o. daily, bisoprolol 10 mg p.o. daily, atorvastatin 80 mg p.o. at bedtime, Actos 50 mg p.o. daily, aspirin 81 mg p.o. daily, glyburide 5 mg p.o. b.i.d., metformin 1,000 mg p.o. b.i.d., Plavix 75 mg p.o. daily. FOLLOWUP AND PLAN: The patient discharged to home on aspirin and Plavix for now. Suspect she will eventually be dropped to just the Plavix. Get a Holter monitor to evaluate for paroxysmal atrial fibrillation. Metformin increased and Actos added for uncontrolled diabetes. Sugars were fairly elevated here up into the high 200s and low 300s, so suspect her diabetes medications will need further adjusting and recommend she follow up with her PCP for that. Greater than 30 minutes spent counseling patient and arranging discharge.
== END 2019-04-06 15:01 | disposition home or self-care (01) | DRG 65 ==
LOC: ED 09:49 → SUATTDRO 09:50 → 3N 09:50
PROVIDERS: ATTEND Internal Medicine